=== PATIENT | male | born 1960 | race Caucasian/White ===

== ENCOUNTER 2019-04-19 12:24 | Emergency (ER) | payer MEDICARE ==
[~2019-04-19] VITALS: Ht 180.3 cm; Wt 90.7 kg
[2019-04-19] MEDS ORDERED: IPRATROPIUM BROMIDE 0.02% 2.5 ML NEB NEB STA (12:26)
[2019-04-19] MEDS ORDERED: ALBUTEROL SULF 0.083% NEB SOLN 3 ML NEB NEB STA (12:26)
[2019-04-19] MEDS ORDERED: NIFEDIPINE10 MG PO (13:05)
[2019-04-19] MEDS ORDERED: DIOVAN80 MG PO (13:05)
[2019-04-19] MEDS ORDERED: CARVEDILOL3.125 MG PO (13:05)
[2019-04-19 13:10] LABS: BASOPHILS # (AUTO) 0.1 (0.0-0.1); BASOPHILS % 0.8 % (0.0-1.0); EOSINOPHILS # (AUTO) 0.3 (0.0-0.4); EOSINOPHILS % 3.4 % (0.0-6.0); HEMATOCRIT 49.9 % (38.2-49.6); HEMOGLOBIN 16.9 g/dL (14.0-18.0); LYMPHOCYTES # (AUTO) 2.4 (1.0-3.2); LYMPHOCYTES % 28.3 % (18.0-39.1); MEAN CORPUSCULAR HEMOGLOBIN 30.5 pg (28-32); MEAN CORPUSCULAR HGB CONC 33.9 g/dL (31-35); MEAN CORPUSCULAR VOLUME 89.9 fL (81-99); MONOCYTES # (AUTO) 1.2 (0.2-0.8); MONOCYTES % 14.2 % (4.4-11.3); NEUTROPHILS # (AUTO) 4.5 (2.1-6.9); NEUTROPHILS % 53.1 % (38.7-80.0); PLATELET COUNT 207 x10e3/uL (140-360); RED BLOOD COUNT 5.55 x10e6/uL (4.3-5.7); RED CELL DISTRIBUTION WIDTH 13.4 % (11.7-14.4)
[2019-04-19 13:34] LABS: INFLUENZAE A&B ANTIGEN (RAPID) NEGATIVE (NEGATIVE); STREPTOCOCCUS GRP A ANTIGEN NEGATIVE (NEGATIVE)
[2019-04-19 13:36] LABS: ALANINE AMINOTRANSFERASE 17 IU/L (0-55); ALBUMIN 4.4 g/dL (3.5-5.0); ALBUMIN/GLOBULIN RATIO 1.5 (0.8-2.0); ALKALINE PHOSPHATASE 75 IU/L (40-150); ANION GAP 13.1 mmol/L (8-16); BLOOD UREA NITROGEN 17 mg/dL (7-26); BUN/CREATININE RATIO 21 (6-25); CALCIUM 9.7 mg/dL (8.4-10.2); CARBON DIOXIDE 26 mmol/L (22-29); CHLORIDE 106 mmol/L (98-107); CREATINE KINASE 82 IU/L (30-200); CREATININE, SERUM 0.82 mg/dL (0.72-1.25); EST GLOMERULAR FILTRATION RATE > 60 ML/MIN (60-); GLUCOSE 103 mg/dL (74-118); POTASSIUM 4.1 mmol/L (3.5-5.1); SODIUM 141 mmol/L (136-145)
--- NOTE | 2019-04-19 13:36 | Diagnostic Imaging Report ---
Chest, portable AP view History: Shortness of breath Comparison: No comparisons available for review IMPRESSION: The heart is within normal limits of size. Patient is status post median sternotomy. The mediastinal and hilar contours are unremarkable. No focal consolidation, sizable pleural effusion, or pneumothorax. No acute osseous abnormalities. Signed by: Khurram Lynne MD on 04/19/2019 1:33 PM
[2019-04-19 14:43] LABS: INR 2.29; PROTHROMBIN TIME 26.9 seconds (11.9-14.5)
[2019-04-19 14:57] VITALS: BP 126/77
[2019-04-19] MEDS ORDERED: METHYLPREDNISOLONE SOD SUCC 125 MG/2ML VIAL IV ONE (15:00)
== END 2019-04-19 15:13 | disposition home or self-care (01) ==
LOC: ER 12:24
DX: R05 Cough (principal); R06.00 Dyspnea, unspecified; J20.9 Acute bronchitis, unspecified
CPT/HCPCS: 36415; 71045; 80053; 82550; 82553; 83518; 83880; 84484; 85025; 85610; 85730; 87070; 87400; 93005; 99284; J2930